=== PATIENT | female | born 1980 | race Caucasian/White ===

== ENCOUNTER 2018-09-16 23:27 | Emergency (ER) | payer MEDICAID ==
[~2018-09-16] VITALS: Ht 162.6 cm; Wt 77.1 kg
[2018-09-16 23:31] VITALS: BP 153/80
[2018-09-17] MEDS ORDERED: LORAZEPAM 1 MG TABLET PO ONE (02:30)
[2018-09-17] MEDS ORDERED: PENICILLIN G BENZATHINE 2.4 MMU/4 ML ML IM ONE ×2 (02:30→02:45)
[2018-09-17] MEDS ORDERED: DEXAMETHASONE SOD PHOSPHATE 10 MG/ML VIAL IM ONE (02:30)
[2018-09-17] MEDS ORDERED: oxyCODONE/APAP (5/325 MG) 1 UDTAB TABLET PO ONE (02:30)
[2018-09-17] MEDS ORDERED: DEXAMETHASONE SOD PHOSPHATE 10 MG/ML VIAL ONE (02:43)
[2018-09-17] MEDS ORDERED: LORAZEPAM 1 MG TABLET ONE (02:44)
[2018-09-17] MEDS ORDERED: oxyCODONE/APAP (5/325 MG) 1 UDTAB TABLET ONE (02:44)
== END 2018-09-17 03:02 | disposition home or self-care (01) ==
LOC: ER 23:30
DX: J03.90 Acute tonsillitis, unspecified (principal); F41.9 Anxiety disorder, unspecified
CPT/HCPCS: 96372 ×2; 99283; J0558; J1100